=== PATIENT | male | born 1990 | race Caucasian/White ===

== ENCOUNTER → 2019-12-27 13:38 | Outpatient (BNVA) | payer SELFPAY | PROVIDERS: Visit Provider Nurse Practitioner Family | DX: J02.9 Acute pharyngitis, unspecified (principal); J20.8 Acute bronchitis due to other specified organisms; J06.9 Acute upper respiratory infection, unspecified; B96.89 Other specified bacterial agents as the cause of diseases classified elsewhere | CPT/HCPCS: 87081; 87880 ==

== ENCOUNTER 2020-01-03 16:24 | Emergency (ER) | payer SELFPAY ==
[2020-01-03 16:39] VITALS: BP 122/78; PULSE 63; RESP 16; TEMP 36.5; O2SAT 98; BMI 29.5
--- NOTE | 2020-01-03 16:59 | XR_ITS ---
WS: [id number] XR chest 2V* [id number] REASON FOR EXAM: cough FINDINGS: The heart is small mediastinal interfaces normal. The lung mccracken are well aerated. No active infiltrates, no pneumonia, pleural effusion, pulmonary ed yoshi, masseffect, or pneumothorax. The hilum and apices normal. XR/XR chest 2V* [id number] IMPRESSION: Negative chest for acute pathology.
--- NOTE | 2020-01-03 17:10 | ED_ITS ---
HPI - General Adult General: Chief complaint: General Medical Stated complaint: Cold symptoms Time Seen by Provider: 01/03/20 16:59 Source: patient Mode of arrival: ambulatory Limitations: no limitations History of Present Illness: HPI narrative: Patient is a 29-year-old male that states he had cough congestion along with sinus congestion for the last week and a half. States he has had slight muscle aches but denies any fevers. He denies any shortness of breath. He denies any productive cough. He denies any worsening or improving factors. Patient is currently in no distress here. Onset (ago): week(s) Severity: mild Relieving factors: none Exacerbating factors: none Associated symptoms: Deny chest pain, dyspnea, headache(s), nausea, rash or vomiting Review of Systems Const: Denies: fever, chills, body aches or change in appetite Eyes: Denies: blurry vision or eye discomfort ENMT: Reports: post nasal drip; Denies: throat pain or dental pain Card: Denies: chest pain Resp: Reports: non-productive cough; Denies: shortness of breath GI: Denies: abdominal pain, nausea, vomiting or diarrhea : Denies: painful urination Musc: Denies: neck pain or back pain Skin/Breast: Denies: rash Neuro: Denies: headache Psych: Denies: depression Sukhdeep/Lymph: Denies: easy bruising All/Imm: Denies: hives PFS ED PFSH: Social History (Updated 12/27/19 @ 13:38 by Ann Colon LPN) Smoking and tobacco status: current every day smoker Physical Exam Const: COMMON NORMALS: no apparent distress, oriented x3 and healthy appearing HENMT: COMMON NORMALS: normocephalic and head/scalp atraumatic HEAD & SCALP: normocephalic and atraumatic Eye: COMMON NORMALS: PERRL and EOMs intact bilaterally PUPIL: Yes PERRL Neck/C-Spine: COMMON NORMALS: full ROM and supple Chest: COMMONS NORMALS: inspection of chest normal and palpation of chest normal Resp: COMMON NORMALS: normal respiratory effort, no retractions, no use of accessory muscles and clear to auscultation bilaterally AUSCULTATION: clear to auscultation bilaterally Cardio: COMMON NORMALS: regular rate, regular rhythm and no murmurs RATE: regular rate RHYTHM: regular rhythm GI: COMMON NORMALS: normal to inspection, nondistended, normoactive bowel sounds, soft to palpation, non-tender and no masses PALPATION: Yes soft Extremity: COMMON NORMALS: normal to inspection and full ROM Neuro: COMMON NORMALS: oriented x3, moves all extremities and no focal motor deficits Psych: COMMON NORMALS: mental status grossly normal, thought process normal and cooperative THOUGHT PROCESS: normal thought process Skin: COMMON NORMALS: no rashes or lesions noted and no wounds GENERAL SKIN EXAM: no rashes or lesions noted Course Vital Signs: Vital signs: Vital Signs Temperature 97.7 F 01/03/20 16:39 Pulse Rate 63 01/03/20 16:39 Respiratory Rate 16 01/03/20 16:39 Blood Pressure 122/78 01/03/20 16:39 Pulse Oximetry 98 01/03/20 16:39 MDM - General Adult MDM Narrative: Medical decision making narrative: Patient presents here with cough congestion is likely a viral upper respiratory infection. He is afebrile and does not sick appearing. Patient given Decadron here and is stable for discharge. Discharge Plan Discharge Patient Disposition: Home, Self-Care Clinical Impression: Upper respiratory infection Condition: Stable Prescriptions: No Action azithromycin 250 mg tablet See Rx Instructions PO .COMPLEX Qty: 6 RF: 0 Discharge Orders: Discharge Order (Routine); Ordered 01/03/20 Ordered By: Pierce Jiang Discharge Diet: Advance as tolerated Discharge Activity: Resume usual activity Patient Instructions: Upper Respiratory Infection (ED) Coding Level of Care Code ED Landscape And Yardwork Laborer for Maria Antonia Vasquez
[2020-01-03] MEDS: dexamethasone 10 mg/mL INJ IM (17:25)
[2020-01-03 17:37] VITALS: BP 124/85; PULSE 64; RESP 16; TEMP 36.4; O2SAT 99
== END 2020-01-03 17:39 | disposition home or self-care (01) ==
LOC: ER 01-25 11:23
PROVIDERS: Emergency Provider Emergency Medicine
DX: J06.9 Acute upper respiratory infection, unspecified (principal); F17.200 Nicotine dependence, unspecified, uncomplicated
CPT/HCPCS: 12345; 71046; 96372; 99281; 99283; J1100

== ENCOUNTER 2020-01-11 15:46 | Emergency (ER) | payer SELFPAY ==
[2020-01-11 15:52] VITALS: BP 123/68; PULSE 80; RESP 16; TEMP 36.5; O2SAT 97; BMI 30.5
--- NOTE | 2020-01-11 16:16 | W.ED.URI ---
HPI - URI/Sore Throat General: Chief Complaint: Upper Respiratory Infection Stated Complaint: COUGH Time Seen by Provider: 01/11/20 15:59 Source: patient Mode of arrival: ambulatory Limitations: no limitations History of Present Illness: HPI Narrative: Patient is a 29-year-old male who presents to ED today requesting testing for COVID-19. Patient has had a cough for the past 2 weeks. He was initially seen here about a week ago and diagnosed with an upper respiratory infection and told to self quarantine for a week. Patient states he still has a cough and would like to know if he could return to work. He has not been running fevers. He has not had any difficulty breathing or shortness of breath. He does state the pain in his chest has improved from his last visit. MD elicited complaint: cough Onset (ago): week(s) Description of mucous: clear Able to tolerate fluids by mouth: Yes Exacerbating factors: nothing Relieving factors: nothing Associated symptoms: Deny abdominal pain, chills, chest pain, diarrhea, ear or mastoid pain, fever(s), headache(s), nasal congestion, nausea or vomiting Review of Systems General: Reports: 10 or more systems reviewed and unremarkable except in HPI and below Const: Denies: fever, chills, body aches, change in appetite, change in weight, fatigue or malaise Eyes: Denies: change in vision, blurry vision or photophobia ENMT: Denies: throat pain, enlarged tonsils, painful swallowing, oral sores/lesions, ear pain, nasal discharge or nasal congestion Card: Denies: chest pain, palpitations, irregular heart rhythm, edema, lightheadedness, syncope, pre-syncope, shortness of breath on exertion or shortness of breath when lying down Resp: Reports: productive cough and chest congestion; Denies: shortness of breath, pain on inspiration or coughing up blood GI: Denies: abdominal pain, nausea, vomiting or diarrhea Musc: Denies: neck pain or back pain Skin/Breast: Denies: rash Neuro: Denies: headache, numbness in extremities, weakness in extremities or changes in sensation [facility] ED PFSH: Social History (Updated 12/27/19 @ 13:38 by Ann Colon LPN) Smoking and tobacco status: current every day smoker Physical Exam Const: COMMON NORMALS: no apparent distress, average body habitus, oriented x3, no limitations, healthy appearing, alert and well nourished HENMT: COMMON NORMALS: normocephalic, head/scalp atraumatic, hearing grossly normal bilaterally, external ears normal, EAC's normal, TM's normal bilaterally, external nose normal, nasal mucous membranes and turbinates normal, moist oral mucous membranes and oropharynx normal HEAD & SCALP: normal to inspection, normocephalic and atraumatic FACE & SINUS: normal facial exam and sinuses nontender NOSE: external nose normal and nasal mucous membranes and turbinates normal EXTERNAL EAR: Yes external ears normal EXTERNAL AUDITORY CANAL: EAC's normal TYMPANIC MEMBRANE: TM's normal bilaterally MOUTH: oral and palatal mucosa normal THROAT: posterior oropharynx normal, tonsils normal and uvula midline Eye: COMMON NORMALS: PERRL, EOMs intact bilaterally and conjunctivae normal CONJUNCTIVA: Yes conjunctivae normal PUPIL: Yes PERRL Neck/C-Spine: COMMON NORMALS: no lymphadenopathy Resp: COMMON NORMALS: normal respiratory effort and clear to auscultation bilaterally AUSCULTATION: clear to auscultation bilaterally Cardio: COMMON NORMALS: regular rate and regular rhythm RATE: regular rate RHYTHM: regular rhythm Neuro: COMMON NORMALS: oriented x3 SENSORIUM/ORIENTATION: Yes alert Skin: COMMON NORMALS: no rashes or lesions noted GENERAL SKIN EXAM: no rashes or lesions noted Course Vital Signs: Vital signs: Vital Signs Temperature 97.7 F 01/11/20 15:52 Pulse Rate 80 01/11/20 15:52 Respiratory Rate 16 01/11/20 15:52 Blood Pressure 123/68 01/11/20 15:52 Pulse Oximetry 97 01/11/20 15:52 MDM - URI/Sore Throat MDM Narrative: Medical decision making narrative: Patient clinically appears well. His vital signs are completely stable. He does not meet CDC/state criteria for COVID-19 testing. 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 Discharge Plan Discharge Patient Disposition: Home, Self-Care Clinical Impression: Upper respiratory infection Qualifiers: URI type: unspecified viral URI Qualified Code(s): J06.9 - Acute upper respiratory infection, unspecified Condition: Stable Prescriptions: New albuterol sulfate 90 mcg/actuation HFA aerosol inhaler 2 inh INHALATION Q4H PRN (Reason: shortness of breath) Qty: 6.7 RF: 0 promethazine-DM 6.25-15 mg/5 mL syrup 5 ml PO Q6H PRN (Reason: cough) Qty: 473 RF: 0 No Action azithromycin 250 mg tablet See Rx Instructions PO .COMPLEX Qty: 6 RF: 0 Discharge Orders: Discharge Order (Routine); Ordered 01/11/20 Ordered By: Caitlyn Nichole Discharge Diet: Usual diet Discharge Activity: Increase activity as tolerated Activity Restrictions/Additional Instructions: BASED ON SYMPTOMS YOU NEED TO SELF QUARANTINE FOR ANOTHER WEEK. Stand Alone Forms: Work/School Release Coding Level of Care Code ED Job Coach/Job Developer for Maria Antonia Vasquez
[2020-01-11 17:17] VITALS: BP 146/71; PULSE 77; RESP 16; O2SAT 98
== END 2020-01-11 17:22 | disposition home or self-care (01) ==
PROVIDERS: Emergency Provider Physician Assistant
DX: J06.9 Acute upper respiratory infection, unspecified (principal); F17.200 Nicotine dependence, unspecified, uncomplicated
CPT/HCPCS: 12345; 99281; 99282

== ENCOUNTER 2020-01-22 12:47 | Emergency (ER) | payer SELFPAY ==
[2020-01-22 12:48] VITALS: BP 123/85; PULSE 91; RESP 18; TEMP 36.3; O2SAT 96
--- NOTE | 2020-01-22 12:59 | ED_ITS ---
HPI - SOB/Dyspnea General: Chief Complaint: Shortness of Breath/Dyspnea Stated Complaint: cough Time Seen by Provider: 01/22/20 12:55 History of Present Illness: HPI Narrative: Pt states he has been sick for 4 weeks with cough every morning, states the cough is severe in the mornings and he coughs up large amounts of sputum, he denies fever, states he has a lot of post nasal drip ,thinks he has allergies, he is angry because he hasnt been tested for coronavirus and he george been seen 3 times, he has quarantined himself for 2 weeks. states symptoms are not any worse. Just wants to be tested. He was prescribed antibiotic and an inhaler but he never filled them, MD elicited complaint: shortness of breath and cough Onset (ago): month(s) (1) Context: allergen exposure (seasonal) Timing: constant Severity: moderate Exacerbating factors: other (worse every morning) Relieving factors: nothing Associated symptoms: Reports cough; Deny abdominal pain, chest pain, extremity pain, fever(s), myalgias, nausea, palpitations, syncope or vomiting Treatment prior to arrival: none Review of Systems General: Reports: 10 or more systems reviewed and unremarkable except in HPI and below Const: Denies: fever ENMT: Reports: throat pain, nasal congestion and post nasal drip; Denies: dry mouth, ear pain or ear discharge Card: Denies: chest pain, palpitations, irregular heart rhythm, edema or syncope Resp: Reports: shortness of breath (only in the mornings) GI: Denies: abdominal pain, nausea, vomiting or vomiting blood : Denies: flank pain or difficulty urinating Musc: Denies: extremity pain, joint pain or joint swelling Skin/Breast: Denies: rash Neuro: Denies: headache, numbness in extremities or weakness in extremities Psych: Reports: anxiety; Denies: depression or sleeping more All/Imm: Reports: itchy eyes and seasonal allergies; Denies: throat swelling or tongue swelling PFSH ED PFSH: Social History Smoking and tobacco status: current every day smoker Physical Exam Const: COMMON NORMALS: no apparent distress and oriented x3 GENERAL APPEARANCE: cooperative; not in distress HENMT: COMMON NORMALS: normocephalic and external nose normal HEAD & SCALP: normal to inspection and normocephalic NOSE: external nose normal and other (post nasal drip) MOUTH: oral and palatal mucosa normal and lip normal Neck/C-Spine: COMMON NORMALS: full ROM, no lymphadenopathy, supple and no meningeal signs GENERAL: Yes normal visual inspection and Yes trachea midline Chest: COMMONS NORMALS: inspection of chest normal Resp: COMMON NORMALS: normal respiratory effort and clear to auscultation bilaterally EFFORT & INSPECTION: Yes able to speak in complete sentences and No respiratory distress AUSCULTATION: clear to auscultation bilaterally, no rales, no rhonchi and no wheezes Cardio: COMMON NORMALS: regular rate, regular rhythm, S1 normal heart sound, S2 normal heart sound and no murmurs RATE: regular rate RHYTHM: regular rhythm HEART SOUNDS: S1 normal and S2 normal PERIPHERAL PULSES: radial pulses present and dorsalis pedis pulses present GI: COMMON NORMALS: normal to inspection, nondistended, normoactive bowel sounds, soft to palpation and non-tender INSPECTION: Yes normal to inspection AUSCULTATION: Yes normoactive bowel sounds PALPATION: Yes soft, No tender, No guarding and No rigid RECTAL EXAM: Yes deferred : COMMON NORMALS: Yes no CVA tenderness BLADDER/KIDNEY EXAM: Yes no CVA tenderness Back/Pelvis: COMMON NORMALS: no CVA tenderness Extremity: COMMON NORMALS: normal to inspection, full ROM, normal capillary refill, no calf tenderness and no pedal edema Neuro: COMMON NORMALS: oriented x3, CN's II-XII intact bilaterally, moves all extremities and no focal motor deficits MENINGEAL SIGNS: Yes no meningeal signs Skin: COMMON NORMALS: no rashes or lesions noted GENERAL SKIN EXAM: no rashes or lesions noted Course Vital Signs: Vital signs: Vital Signs Temperature 97.3 F L 01/22/20 12:48 Pulse Rate 78 01/22/20 14:20 Respiratory Rate 20 H 01/22/20 14:20 Blood Pressure 140/87 01/22/20 14:20 Pulse Oximetry 97 01/22/20 14:20 MDM - SOB/Dyspnea MDM Narrative: Medical decision making narrative: Pt has severe cough when he wakes up in the mornings and is sob, I will repeat his cxr and test him for covid-19. He is not in any distress. He has already quarantined himself for 2 weeks and states he is already back to work. Pt has unremarkable cxr, he had a prescription for zithromax and inhaler at the [facility] so we will call to see if they have it still, they do have it and he will go get it. I have encouraged him to start using cetirizine as well. he will f/u with pcp in 2 days and return if anything worsens Imaging Data^: CXR: Radiologist's impression: XRay Report Signed Patient: Vladimir Mcneil #: [id number] : 1990Acct#:[id number] Age/Sex: M Date: 01/22/20 Loc: ERRoom/Bed: Attending Dr: Ordering Provider/Ordering MD: Amy Canas DO Date of Service: 01/22/20 Procedure(s): XR chest 1V portable [id number] Accession Number(s): [id number] Report Number: [id number] WS: [id number] CHEST XRAY TECHNIQUE: Portable chest. CLINICAL INFORMATION: pneumonia COMPARISON: 01/03/20 FINDINGS: Heart: Normal cardiac silhouette. Lungs: Lungs are clear. No consolidation or pleural effusion. No acute pulmonary infiltrates. Bones: Normal visualized bony structures. XR/XR chest 1V portable [id number] IMPRESSION: Normal chest Dictated By:Danyel Jacobs MD Signed By:Danyel Jacobs MDSigned Date/Time:01/22/20 1331 DD/ 1329 Discharge Plan Discharge Patient Disposition: Home, Self-Care Clinical Impression: Seasonal allergies, Bronchitis Condition: Stable Prescriptions: No Action azithromycin 250 mg tablet See Rx Instructions PO .COMPLEX Qty: 6 RF: 0 Vitamin C Powder 1 ea PO PRN RF: 0 amoxicillin 500 mg Tablet 500 mg PO BID RF: 0 albuterol sulfate 90 mcg/actuation HFA aerosol inhaler 2 inh INHALATION Q4H PRN (Reason: shortness of breath) Qty: 6.7 RF: 0 promethazine-DM 6.25-15 mg/5 mL syrup 5 ml PO Q6H PRN (Reason: cough) Qty: 473 RF: 0 Discharge Diet: Regular Discharge Activity: Resume usual activity Patient Instructions: Acute Bronchitis (ED) Activity Restrictions/Additional Instructions: get cetirizine over the counter and use daily, get prescriptions that are already filled at the [facility]. drink plenty of fluids. Follow up with PCP that case management finds for you. Return if worse, any problem, any change. You have been given info to get your COVID results. You have already quarantined for 14 days. stay home for 14 more if you develop fever or test is positive Discharge Date/Time: 01/22/20 14:21 Coding Level of Care Code ED Certification Technician for Maria Antonia Fwd Exam Comprehensive
--- NOTE | 2020-01-22 13:14 | XR_ITS ---
WS: [id number] CHEST XRAY TECHNIQUE: Portable chest. CLINICAL INFORMATION: pneumonia COMPARISON: 01/03/20 FINDINGS: Heart: Normal cardiac silhouette. Lungs: Lungs are clear. No consolidation or pleural effusion. No acute pulmonary infiltrates. Bones: Normal visualized bony structures. XR/XR chest 1V portable [id number] IMPRESSION: Normal chest
--- NOTE | 2020-01-22 13:33 | PC.NURSE ---
COVID swab collected
[2020-01-22 14:20] VITALS: BP 140/87; PULSE 78; RESP 20; O2SAT 97
--- NOTE | 2020-01-23 14:26 | DCPLANNER ---
quality system manager had message to speak with patient about getting established with a primary care physician. quality system manager called patient at phone number [phone], unable to speak with patient at this time, and unable to leave a voicemail for patient due to phone number not accepting phone calls at this time.
[2020-01-26 08:34] LABS: Coronavirus Overall Results NOT DETECTED
== END 2020-01-22 14:21 | disposition home or self-care (01) ==
PROVIDERS: Emergency Provider Emergency Medicine
DX: J30.2 Other seasonal allergic rhinitis (principal); J40 Bronchitis, not specified as acute or chronic; F17.200 Nicotine dependence, unspecified, uncomplicated
CPT/HCPCS: 12345; 71045; 87635; 99282

== ENCOUNTER 2020-02-08 10:32 | Emergency (ER) | payer SELFPAY ==
[2020-02-08 10:49] VITALS: BP 120/81; PULSE 74; RESP 16; TEMP 36.6; O2SAT 96; BMI 29.8
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
[2020-02-08 11:33] VITALS: RESP 18
[2020-02-08 11:38] VITALS: RESP 16; O2SAT 98
== END 2020-02-08 11:39 | disposition home or self-care (01) ==
LOC: ER 11:15
PROVIDERS: Emergency Provider Physician Assistant
DX: J06.9 Acute upper respiratory infection, unspecified (principal); F17.210 Nicotine dependence, cigarettes, uncomplicated
CPT/HCPCS: 12345; 99281

== ENCOUNTER 2020-02-24 13:44 | Emergency (ER) | payer SELFPAY ==
[2020-02-24 13:55] VITALS: BP 124/78; PULSE 73; RESP 18; TEMP 36.7; O2SAT 100; BMI 29.8
--- NOTE | 2020-02-24 13:57 | ED_ITS ---
HPI - Back Pain/Injury General: Chief Complaint: Back Pain/Injury Stated Complaint: BACK PAIN Time Seen by Provider: 02/24/20 13:46 History of Present Illness: HPI Narrative: Patient is a 29-year-old male who comes to the ED with acute on chronic lower back pain. Pain started yesterday. Patient was kayaking and then had to lift and carry his kayak and after that he started getting lower back pain that progressed throughout the rest that evening. Patient says he was having trouble getting up and moving last night. Pain is located all in the lower back on both right and left sides. Patient denies any trauma or injury provoke pain. Denies any numbness tingling or pain radiating down extremities. Denies any bladder or bowel incontinence and pelvic anesthesia. Associated symptoms: Deny abdominal pain, chills, dysuria, fatigue, fever(s), hematuria, nausea or vomiting Review of Systems Const: Denies: fever, chills or fatigue Eyes: Denies: change in vision or eye discomfort ENMT: Denies: throat pain, painful swallowing, nasal discharge or nasal congestion Card: Denies: chest pain, palpitations, edema, swelling of feet/ankles, shortness of breath on exertion or shortness of breath when lying down Resp: Denies: shortness of breath, productive cough or non-productive cough GI: Denies: abdominal pain, nausea, vomiting, diarrhea, constipation or blood in stool : Denies: flank pain, difficulty urinating, painful urination or blood in urine Musc: Reports: back pain; Denies: neck pain or extremity swelling Skin/Breast: Denies: rash or new lesion Neuro: Denies: headache, numbness in extremities or weakness in extremities PFS ED PFSH: Social History Smoking and tobacco status: current every day smoker Physical Exam Const: COMMON NORMALS: oriented x3, healthy appearing and alert GENERAL APPEARANCE: cooperative; not comfortable (uncofortable due to lower back pain.) HENMT: COMMON NORMALS: normocephalic HEAD & SCALP: normocephalic MOUTH: oral and palatal mucosa normal THROAT: posterior oropharynx normal and uvula midline Eye: COMMON NORMALS: PERRL PUPIL: Yes PERRL Neck/C-Spine: COMMON NORMALS: supple GENERAL: Yes normal visual inspection Resp: COMMON NORMALS: normal respiratory effort, no retractions, no use of accessory muscles and clear to auscultation bilaterally AUSCULTATION: clear to auscultation bilaterally Cardio: COMMON NORMALS: regular rate, regular rhythm, S1 normal heart sound, S2 normal heart sound, no gallops, no clicks, no murmurs and peripheral pulses 2+ throughout RATE: regular rate RHYTHM: regular rhythm HEART SOUNDS: S1 normal and S2 normal PERIPHERAL PULSES: pulses 2+ throughout GI: COMMON NORMALS: normal to inspection, nondistended, normoactive bowel sounds, soft to palpation, non-tender and no masses PALPATION: Yes soft : COMMON NORMALS: Yes no CVA tenderness BLADDER/KIDNEY EXAM: Yes no CVA tenderness Back/Pelvis: COMMON NORMALS: no CVA tenderness LUMBAR SPINE/LOWER BACK: No lumbar spinal tenderness and Yes paraspinal muscle tenderness Extremity: COMMON NORMALS: normal to inspection Neuro: COMMON NORMALS: oriented x3 and moves all extremities SENSORIUM/ORIENTATION: Yes alert Skin: COMMON NORMALS: no rashes or lesions noted GENERAL SKIN EXAM: no rashes or lesions noted and dry skin Course Vital Signs: Vital signs: Vital Signs Temperature 98.1 F 02/24/20 13:55 Pulse Rate 70 02/24/20 14:56 Respiratory Rate 20 H 02/24/20 14:56 Blood Pressure 124/78 02/24/20 13:55 Pulse Oximetry 100 02/24/20 14:56 MDM - Back Pain/Injury MDM Narrative: Medical decision making narrative: Patient is a 29-year-old male who comes to the ED with lower back pain. No pain, numbness or tingling radiating down either extremity. Denies loss of sensation in the pelvic area, bladder and bowel incontinence. Patient thinks he potentially pulled/strained lower back while kayaking and lifting kayak yesterday. Physical exam showed some lumbar paraspinal muscle tenderness. Patient was given a shot of Toradol and Norflex while here in the ED. I told patient to stretch lower back daily and to use heat or ice on lower back to help with symptoms. I sent patient home with a prescription for muscle relaxer and told him to use it at night. I also told patient to take OTC ibuprofen 600 mg 3 times a day to help with pain inflammation. Follow-up with PCP in 7 days for reevaluation. Patient understood and agreed with plan. Discharge Plan Discharge Patient Disposition: Home, Self-Care Clinical Impression: Strain of lumbar region Qualifiers: Encounter type: initial encounter Qualified Code(s): S39.012A - Strain of muscle, fascia and tendon of lower back, initial encounter Condition: Stable Prescriptions: New Robaxin-750 750 mg tablet 750 mg PO Q8H Qty: 20 RF: 0 No Action azithromycin 250 mg tablet See Rx Instructions PO .COMPLEX Qty: 6 RF: 0 Vitamin C Powder 1 ea PO PRN RF: 0 amoxicillin 500 mg Tablet 500 mg PO BID RF: 0 albuterol sulfate 90 mcg/actuation HFA aerosol inhaler 2 inh INHALATION Q4H PRN (Reason: shortness of breath) Qty: 6.7 RF: 0 promethazine-DM 6.25-15 mg/5 mL syrup 5 ml PO Q6H PRN (Reason: cough) Qty: 473 RF: 0 Discharge Orders: Discharge Order (Routine); Ordered 02/24/20 Ordered By: Jabier Dunbar Discharge Diet: Regular Discharge Activity: Increase activity as tolerated Patient Instructions: Low Back Strain (ED), Core Strengthening Exercises (GEN) Activity Restrictions/Additional Instructions: Follow-up with your PCP in 7 to 10 days for reevaluation. Take prescribed muscle relaxer at night before bed to help with pain and comfort while sleeping. Muscle relaxer might cause drowsiness so use with caution during the day. Take [id number] ibuprofen 600 mg 3 times a day to help with pain and inflammation. Apply ice and/or heat on lower back to help with pain and symptoms. To daily lower back stretches and core strengthening exercises to help with back pain. Discharge Date/Time: 02/24/20 14:56 Coding Level of Care Code ED Profile Grinder Technician for Maria Antonia Fwd Exam Comprehensive
[2020-02-24] MEDS: ketorolac 30 mg/mL INJ IM (14:44)
[2020-02-24] MEDS: orphenadrine 30 mg/mL Inj 2 mL 60 MG IM (14:45)
[2020-02-24 14:56] VITALS: PULSE 70; RESP 20; O2SAT 100
== END 2020-02-24 14:56 | disposition home or self-care (01) ==
PROVIDERS: Emergency Provider Physician Assistant
DX: S39.012A Strain of muscle, fascia and tendon of lower back, initial encounter (principal); X50.0XXA Overexertion from strenuous movement or load, initial encounter; F17.210 Nicotine dependence, cigarettes, uncomplicated
CPT/HCPCS: 12345; 96372; 99281; 99283; J1885; J2360

== ENCOUNTER 2020-11-27 12:07 | Emergency (ER) | payer SELFPAY ==
[2020-11-27 12:12] VITALS: BP 137/102; PULSE 108; RESP 20; TEMP 36.8; O2SAT 94; BMI 29.8
[2020-11-27 12:14] VITALS: BP 122/88; PULSE 99; RESP 20; O2SAT 96
--- NOTE | 2020-11-27 12:21 | XR_ITS ---
WS: [id number] Portable AP upright chest, 11/27/2020 Clinical Data: chest pain Comparison: Portable chest, 01/22/2020. Findings: No nodules, masses or effusions are seen. The heart is normal. The pulmonary vascularity is not increased. No pneumonia or pneumothorax is seen. XR/XR chest 1V portable [id number] Impression: Negative chest.
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
[2020-11-27 12:47] VITALS: O2SAT 97
[2020-11-27 13:04] VITALS: BP 124/83; PULSE 98; RESP 18; O2SAT 97
--- NOTE | 2020-11-28 10:51 | DCPLANNER ---
Addendum entered by Dulce Wheatley 11/28/20 12:49: Patient called child support case officer back, stated that he does not have insurance at this time. janitorial account manager will mail patient the financial reporting consultant application for primary care. Patient will fill out and turn in, if patients wants help in getting established with a primary care physician then he will call child support case officer. Original Note: janitorial account manager had message to speak with patient about getting a primary care physician. janitorial account manager called phone number [phone], unable to speak with patient at this time, a voicemail was left for patient to return child support case officer phone call.
[2020-11-28 16:04] LABS: Coronavirus Test Green County Not Detected
--- NOTE | 2020-11-29 08:43 | PC.NURSE ---
Pt called and notified of negative COVID result.
== END 2020-11-27 13:11 | disposition home or self-care (01) ==
PROVIDERS: Emergency Provider Physician Assistant
DX: Z20.828 Contact with and (suspected) exposure to other viral communicable diseases (principal); J06.9 Acute upper respiratory infection, unspecified; F17.200 Nicotine dependence, unspecified, uncomplicated
CPT/HCPCS: 71045; 87635; 99281

== ENCOUNTER 2021-01-18 20:15 | Emergency (ER) | payer SELFPAY ==
[2021-01-18 20:25] VITALS: BP 136/93; PULSE 86; RESP 18; TEMP 37.1; O2SAT 99; BMI 29.1
--- NOTE | 2021-01-18 23:19 | XRR_ITS ---
PROCEDURE INFORMATION: Exam: XR Left Ribs with PA Chest Exam date and time: 01/18/2021 11:20 PM Age: 30 years old Clinical indication: Injury or trauma; Chest wall and rib area, left side; Blunt trauma; Patient HX: Recent fall from approximate 8 foot height. C/O left chest wall and rib pain. ; Additional info: Pleuritic left side cp TECHNIQUE: Imaging protocol: XR Left ribs with PA chest. Views: 3 views COMPARISON: CR XR chest 1V portable [id number] 11/27/2020 12:29 PM FINDINGS: Lungs: Unremarkable. No consolidation. Pleural spaces: Unremarkable. No pleural effusion. No pneumothorax. Heart/Mediastinum: Unremarkable. No cardiomegaly. Bones/joints: Unremarkable. XR/XR ribs LT mn 3V w CXR1V [id number] IMPRESSION: No acute findings.
--- NOTE | 2021-01-18 23:23 | W.ED.CHESTPA ---
HPI - Chest Pain General: Chief Complaint: Chest Pain Stated Complaint: SHARP PAIN IN L SIDE CHEST Time Seen by Provider: 01/18/21 23:19 History of Present Illness: HPI narrative: Patient is a 30-year-old male comes to the ED with left-sided chest pain. Patient says symptoms started approximately 2 weeks ago after he had a fall. Patient describes that he was on shed putting some shingles on the roof and he slipped and fell off the shed. He says the shot was approximately 8 feet tall. Said ever since he had a fall he has had some left sided rib pain that is pleuritic in nature. Says it hurts to take a deep breath or when he coughs. He rates pain a 7 out of 10. Denies any shortness of breath or hemoptysis. Denies any head trauma, headache or loss of consciousness after fall. Associated symptoms: Deny abdominal pain, dyspnea, fever(s), nausea, palpitations or vomiting Review of Systems Const: Denies: fever(s), chills or fatigue Eyes: Denies: change in vision or eye discomfort ENMT: Denies: throat pain, odynophagia, nasal discharge or nasal congestion Card: Denies: chest pain, palpitations, edema, swelling of feet/ankles, dyspnea on exertion or orthopnea Resp: Reports: pain on inspiration (left rib pain); Denies: dyspnea, productive cough or non-productive cough GI: Denies: abdominal pain, nausea, vomiting, diarrhea, constipation or hematochezia : Denies: flank pain, difficulty urinating, dysuria or hematuria Musc: Denies: neck pain, back pain or extremity swelling Skin/Breast: Denies: rash or new lesions Neuro: Denies: headache(s), numbness in extremities or weakness in extremities [facility] ED PFSH: Social History Smoking and tobacco status: current every day smoker Alcohol intake: never Current gender identity: Male Physical Exam Const: COMMON NORMALS: no acute distress, patient oriented x3, healthy appearing and alert GENERAL APPEARANCE: cooperative and comfortable HENMT: COMMON NORMALS: normocephalic HEAD & SCALP: normocephalic MOUTH: Normal oral and palatal mucosa present THROAT: posterior oropharynx normal and uvula midline Neck/C-Spine: COMMON NORMALS: supple GENERAL: Yes normal visual inspection Chest: CHEST: Yes tenderness rib left mid-clavicular line involving the 5th rib, involving the 6th rib and involving the 7th rib Resp: COMMON NORMALS: normal respiratory effort, No retractions, No use of accessory muscles and clear to auscultation bilaterally AUSCULTATION: clear to auscultation bilaterally Cardio: COMMON NORMALS: regular rate, regular rhythm, S1 normal heart sound present, S2 normal heart sound present, No gallops present (Cardio), No clicks present (Cardio), No murmurs present (Cardio) and Peripheral pulses 2+ throughout RATE: regular rate RHYTHM: regular rhythm HEART SOUNDS: S1 normal heart sound present and S2 normal heart sound present PERIPHERAL PULSES: Peripheral pulses 2+ throughout GI: COMMON NORMALS: Normal to inspection, nondistended, normoactive bowel sounds present, Soft to palpation, non-tender and no masses PALPATION: Yes Soft to palpation : COMMON NORMALS: Yes no CVA tenderness BLADDER/KIDNEY EXAM: Yes no CVA tenderness Back/Pelvis: COMMON NORMALS: no CVA tenderness Extremity: COMMON NORMALS: normal to inspection Neuro: COMMON NORMALS: patient oriented x3 and moves all extremities SENSORIUM/ORIENTATION: Yes alert Skin: GENERAL SKIN EXAM: dry skin Course Vital Signs: Vital signs: Vital Signs Temperature 98.7 F 01/18/21 20:25 Pulse Rate 72 01/18/21 23:29 Respiratory Rate 18 01/18/21 23:57 Blood Pressure 131/87 01/18/21 23:57 Pulse Oximetry 98 01/18/21 23:57 MDM - Chest Pain MDM Narrative: Medical decision making narrative: Patient is a 30-year-old male comes to the ED with left pleuritic rib pain after falling off haider roof 2 weeks ago. Patient says that the room was approximately 8 feet tall and he denies any head trauma or loss of consciousness. Ever since fall he has had some left rib pain. Exam shows patient in no acute distress or pain but has some fifth through seventh left rib tenderness upon palpation. Left rib x-ray showed no acute fractures or findings. Patient diagnosed with musculoskeletal chest pain and discharged home. He was given a dose of Toradol while here in the ED. He was told to rest, ice and take [id number] Tylenol or ibuprofen for pain. Return to ED precautions given. Patient understood agree with plan. Imaging Data^: CXR: Attestation: I personally reviewed and interpreted this imaging study as follows: Radiologist's impression: [address] [address] XRay Report Signed Patient: Vladimir Mcneil #: [id number] : 1990Acct#:[id number] Age/Sex: 30 / MADM Date: 01/18/21 Loc: ERRoom/Bed: Attending Dr: Ordering Provider/Ordering MD: Jabier Dunbar Date of Service: 01/18/21 Procedure(s): XR ribs LT mn 3V w CXR1V [id number] Accession Number(s): [id number] Report Number: [id number] PROCEDURE INFORMATION: Exam: XR Left Ribs with PA Chest Exam date and time: 01/18/2021 11:20 PM Age: 30 years old Clinical indication: Injury or trauma; Chest wall and rib area, left side; Blunt trauma; Patient HX: Recent fall from approximate 8 foot height. C/O left chest wall and rib pain. ; Additional info: Pleuritic left side cp TECHNIQUE: Imaging protocol: XR Left ribs with PA chest. Views: 3 views COMPARISON: CR XR chest 1V portable [id number] 11/27/2020 12:29 PM FINDINGS: Lungs: Unremarkable. No consolidation. Pleural spaces: Unremarkable. No pleural effusion. No pneumothorax. Heart/Mediastinum: Unremarkable. No cardiomegaly. Bones/joints: Unremarkable. XR/XR ribs LT mn 3V w CXR1V [id number] IMPRESSION: No acute findings. Dictated By:Shwetha Garcia MD Signed By:Shwetha Garcia MDSigned Date/Time:01/18/212355 DD/ 54 Discharge Plan Discharge Patient Disposition: Home Clinical Impression: Musculoskeletal chest pain Condition: Stable Prescriptions: No Action albuterol sulfate 90 mcg/actuation aerosol powdr breath activated 2 inh INHALATION Q4H PRN (Reason: shortness of breath or wheezing) Qty: 1 RF: 0 Discharge Orders: Discharge ED (Routine); Ordered 01/18/21 Ordered By: Jabier Dunbar Discharge Diet: Regular Discharge Activity: Increase activity as tolerated Activity Restrictions/Additional Instructions: Follow-up with medical provider as directed in 7 to 10 days for reevaluation. Take [id number]-oye-[id number] ibuprofen or Tylenol for pain. Apply cold pack on sore left chest area to help with symptoms. Return to the ER or your medical provider if condition worsens. Please read and understand discharge instructions. If any questions, please ask. Coding Level of Care Code ED Ict Support Technicians for Maria Antonia Fwd Exam Comprehensive
[2021-01-18 23:29] VITALS: BP 131/87; PULSE 72; RESP 18; O2SAT 100
[2021-01-18] MEDS: ketorolac 60 mg/2 mL INJ IM (23:52)
[2021-01-18 23:57] VITALS: BP 131/87; RESP 18; O2SAT 98
== END 2021-01-18 23:58 | disposition home or self-care (01) ==
PROVIDERS: Emergency Provider Physician Assistant
DX: R07.89 Other chest pain (principal); F17.210 Nicotine dependence, cigarettes, uncomplicated
CPT/HCPCS: 71101; 96372; 99283; J1885

== ENCOUNTER 2021-05-26 18:05 | Emergency (ER) | payer SELFPAY ==
[2021-05-26 18:12] VITALS: BP 106/79; PULSE 121; RESP 19; TEMP 36.9; O2SAT 97; BMI 29.8
--- NOTE | 2021-05-26 18:33 | W.ED.BACK ---
HPI - Back Pain/Injury General: Chief Complaint: Back Pain/Injury Stated Complaint: Lower Back Sharp Pain Time Seen by Provider: 05/26/21 18:23 History of Present Illness: HPI Narrative: Patient is a 30-year-old male comes to the ED with back pain. Back pain started about 9 days ago. 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 He did not have a lot of pain at the time but the next day he was having some pain. He also states that that day he was lifting a lot of heavy materials as well and he thinks he could have strained his back. Pain is located on both sides of lower back and certain movements cause pain. He says he has some pain that radiates down both right and left thighs. Denies any bladder or bowel incontinence, pelvic anesthesia or weakness to lower extremities. Associated symptoms: Deny abdominal pain, chills, dysuria, fatigue, fever(s), hematuria, nausea or vomiting Review of Systems Const: Denies: fever(s), chills or fatigue Eyes: Denies: change in vision or eye discomfort ENMT: Denies: throat pain, odynophagia, nasal discharge or nasal congestion Card: Denies: chest pain, palpitations, edema, swelling of feet/ankles, dyspnea on exertion or orthopnea Resp: Denies: dyspnea, productive cough or non-productive cough GI: Denies: abdominal pain, nausea, vomiting, diarrhea, constipation or hematochezia : Denies: flank pain, difficulty urinating, dysuria or hematuria Musc: Reports: back pain; Denies: neck pain or extremity swelling Skin/Breast: Denies: rash or new lesions Neuro: Denies: headache(s), numbness in extremities or weakness in extremities PFSH ED PFSH: Social History Smoking and tobacco status: current every day smoker cigarettes Packs smoked per day: 0.5 Years cigarettes smoked: 17 Quit status (tobacco): has tried quititng Number of times tried to quit tobacco: 13 Second hand smoke exposure: Yes Alcohol intake: never Current gender identity: Male Physical Exam Const: COMMON NORMALS: patient oriented x3 HENMT: COMMON NORMALS: normocephalic HEAD & SCALP: normocephalic MOUTH: Normal oral and palatal mucosa present THROAT: posterior oropharynx normal and uvula midline Neck/C-Spine: COMMON NORMALS: supple GENERAL: Yes normal visual inspection Resp: COMMON NORMALS: normal respiratory effort, No retractions, No use of accessory muscles and clear to auscultation bilaterally AUSCULTATION: clear to auscultation bilaterally Cardio: COMMON NORMALS: regular rate, regular rhythm, S1 normal heart sound present, S2 normal heart sound present, No gallops present (Cardio), No clicks present (Cardio), No murmurs present (Cardio) and Peripheral pulses 2+ throughout RATE: regular rate RHYTHM: regular rhythm HEART SOUNDS: S1 normal heart sound present and S2 normal heart sound present PERIPHERAL PULSES: Peripheral pulses 2+ throughout GI: COMMON NORMALS: Normal to inspection, nondistended, normoactive bowel sounds present, Soft to palpation, non-tender and no masses PALPATION: Yes Soft to palpation : COMMON NORMALS: Yes no CVA tenderness BLADDER/KIDNEY EXAM: Yes no CVA tenderness Back/Pelvis: COMMON NORMALS: no CVA tenderness LUMBAR SPINE/LOWER BACK: Yes paraspinal muscle tenderness Lumbar paraspinal muscle tenderness: bilateral Bilateral lumbar paraspinal muscle tenderness: L3, L4 and L5 Extremity: COMMON NORMALS: normal to inspection Neuro: COMMON NORMALS: patient oriented x3 and moves all extremities Skin: GENERAL SKIN EXAM: dry skin Course Vital Signs: Vital signs: Vital Signs Temperature 98.4 F 05/26/21 18:40 Pulse Rate 71 05/26/21 20:17 Respiratory Rate 16 05/26/21 20:17 Blood Pressure 106/79 05/26/21 18:40 Pulse Oximetry 99 05/26/21 20:17 MDM - Back Pain/Injury Imaging Data^: Xray Ortho: Attestation: I personally reviewed and interpreted this imaging study as follows: Radiologist's impression: [address] [address] XRay Report Signed Patient: Vladimir Mcneil Unit #: [id number] : 1990 Age/Sex: 30 / M ADM Date: 05/26/21 Loc: ER Room/Bed: Attending Dr: Ordering Provider/Ordering MD: Jabier Dunbar Date of Service: 05/26/21 Procedure(s): XR lumbar spine 2-3V* [id number] Accession Number(s): [id number] Report Number: [id number] PROCEDURE INFORMATION: Exam: XR Lumbosacral Spine Exam date and time: 05/26/2021 6:51 PM Age: 30 years old Clinical indication: Low back pain; Additional info: Back pain, had a fall from ladder about 9 days ago TECHNIQUE: Imaging protocol: XR of the lumbosacral spine. Views: 2 or 3 views. COMPARISON: CT abdomen pelvis w con* [id number] 03/23/2016 7:11 PM FINDINGS: Bones/joints: Calcifications seen in the region of the left adrenal gland. Soft tissues: Unremarkable. XR/XR lumbar spine 2-3V* [id number] IMPRESSION: Negative for fracture or dislocation. Dictated By: Cesar Goss MD Signed By: Cesar Goss MD Signed Date/Time: 05/26/211958 DD/ 57 Discharge Plan Discharge Patient Disposition: Home Clinical Impression: Strain of lumbar region Qualifiers: Encounter type: initial encounter Qualified Code(s): S39.012A - Strain of muscle, fascia and tendon of lower back, initial encounter Condition: Stable Prescriptions: New Celebrex 100 mg capsule 100 mg PO BID Qty: 30 RF: 0 cyclobenzaprine 10 mg tablet 10 mg PO BID PRN (Reason: muscle spasm) Qty: 20 RF: 0 Medrol (Ellis) 4 mg tablets,dose pack See Rx Instructions .ROUTE .COMPLEX Qty: 21 RF: 0 No Action albuterol sulfate 90 mcg/actuation aerosol powdr breath activated 2 inh INHALATION Q4H PRN (Reason: shortness of breath or wheezing) Qty: 1 RF: 0 Discharge Orders: Discharge ED (Routine); Ordered 05/26/21 Ordered By: Jabier Dunbar Discharge Diet: Regular Discharge Activity: Increase activity as tolerated Patient Instructions: Low Back Strain (ED) Activity Restrictions/Additional Instructions: Follow-up with medical provider as directed in 7-10 days. Take medications as prescribed. Apply cold pack or heat on lower back and stretch lower back daily. Return to the ER or your medical provider if condition worsens. Please read and understand discharge instructions. Thank you for choosing [facility] for your healthcare needs today. Please realize this is an emergency room and that we are providing you with a medical screening exam and this may not be complete and all inclusive of all the testing and or work up that you may need to determine your ailment or severity of your illness. It is very important that you follow up as instructed or that you return to the Emergency Department should you have concerns or if your condition changes or worsens in any way. Coding Level of Care Code ED Power Plant Installer for Maria Antonia Fwrenetta Exam Comprehensive
[2021-05-26 18:40] VITALS: BP 106/79; PULSE 121; RESP 15; TEMP 36.9; O2SAT 97
--- NOTE | 2021-05-26 18:51 | XRR_ITS ---
PROCEDURE INFORMATION: Exam: XR Lumbosacral Spine Exam date and time: 05/26/2021 6:51 PM Age: 30 years old Clinical indication: Low back pain; Additional info: Back pain, had a fall from ladder about 9 days ago TECHNIQUE: Imaging protocol: XR of the lumbosacral spine. Views: 2 or 3 views. COMPARISON: CT abdomen pelvis w con* [id number] 03/23/2016 7:11 PM FINDINGS: Bones/joints: Calcifications seen in the region of the left adrenal gland. Soft tissues: Unremarkable. XR/XR lumbar spine 2-3V* [id number] IMPRESSION: Negative for fracture or dislocation.
[2021-05-26] MEDS: dexamethasone 10 mg/mL INJ IM (19:14)
[2021-05-26] MEDS: orphenadrine 30 mg/mL Inj 2 mL 60 MG IM (19:15)
[2021-05-26] MEDS: ketorolac 60 mg/2 mL INJ IM (19:15)
[2021-05-26 20:17] VITALS: PULSE 71; RESP 16; O2SAT 99
== END 2021-05-26 20:17 | disposition home or self-care (01) ==
PROVIDERS: Emergency Provider Physician Assistant
DX: S39.012A Strain of muscle, fascia and tendon of lower back, initial encounter (principal); F17.210 Nicotine dependence, cigarettes, uncomplicated; W11.XXXA Fall on and from ladder, initial encounter
CPT/HCPCS: 72100; 96372; 99283; J1100; J1885; J2360

== ENCOUNTER → 2021-06-18 13:50 | Outpatient (BNVA) | payer OTHER, SELFPAY | PROVIDERS: Visit Provider Nurse Practitioner | DX: Z20.822 Contact with and (suspected) exposure to COVID-19 (principal); Z20.828 Contact with and (suspected) exposure to other viral communicable diseases | CPT/HCPCS: 87635 ==

== ENCOUNTER 2021-07-24 20:17 | Emergency (ER) | payer SELFPAY ==
[2021-07-24 20:35] VITALS: BP 126/90; PULSE 83; RESP 16; TEMP 36.8; O2SAT 100
--- NOTE | 2021-07-24 21:17 | W.ED.EAR ---
HPI - Ear Problem General: Chief complaint: Ear Stated complaint: Left ear pain Time Seen by Provider: 07/24/21 21:09 History of Present Illness: HPI Narrative: Patient states he had ear pain 2 weeks ago after his hit him in the left ear while they were wrestling and was all by accident. Ear bother him for 2 weeks, then he went swimming at the [place] today and now he has decreased hearing in left ear and slight pain. MD Complaint: ear pain and decreased hearing Location: left ear Duration: constant Severity: mild Relieving factors: nothing Exacerbating factors: nothing Context: trauma Associated symptoms: Reports no associated symptoms and ear or mastoid pain (Left ear, and 2 weeks ago trauma, swam in a pool today.); Denies fever(s) or headache(s) Review of Systems Const: Denies: fever(s), chills or body aches Eyes: Denies: change in vision or blurry vision ENMT: Reports: ear or mastoid pain (Left ear, and 2 weeks ago trauma, swam in a pool today.); Denies: throat pain or nasal congestion Card: Denies: chest pain or dyspnea on exertion Resp: Denies: dyspnea, productive cough or non-productive cough GI: Denies: abdominal pain, nausea or vomiting : Denies: difficulty urinating Musc: Denies: extremity pain Skin/Breast: Denies: rash Neuro: Denies: headache(s) Psych: Denies: anxiety or depression Sukhdeep/Lymph: Denies: easy bruising PFSH ED PFSH: Social History Smoking and tobacco status: current every day smoker cigarettes Packs smoked per day: 0.5 Years cigarettes smoked: 17 Quit status (tobacco): has tried quititng Number of times tried to quit tobacco: 13 Second hand smoke exposure: Yes Alcohol intake: never Current gender identity: Male Physical Exam Const: COMMON NORMALS: no acute distress GENERAL APPEARANCE: cooperative HENMT: TYMPANIC MEMBRANE: TM normal on the right and TM abnormal TM laterality: left Details: perforation (2 holes in the eardrum) Details: without discharge MOUTH: Normal oral and palatal mucosa present Lymph: LYMPHATIC: no lymphadenopathy noted Psych: COMMON NORMALS: mental status grossly normal Course Vital Signs: Vital signs: Vital Signs Temperature 98.2 F 07/24/21 20:35 Pulse Rate 83 07/24/21 20:35 Respiratory Rate 16 07/24/21 20:35 Blood Pressure 126/90 07/24/21 20:35 Pulse Oximetry 100 07/24/21 20:35 Discharge Plan Discharge Patient Disposition: Home Clinical Impression: Tympanic membrane perforation Qualifiers: Laterality: left Qualified Code(s): H72.92 - Unspecified perforation of tympanic membrane, left ear Condition: Stable Prescriptions: New Cipro 500 mg tablet 500 mg PO BID Qty: 14 RF: 0 No Action amoxicillin-pot clavulanate [Augmentin] 875-125 mg tablet 1 tab PO BID 10 Days Qty: 20 RF: 0 Discharge Orders: Discharge ED (Routine); Ordered 07/24/21 Ordered By: Tutu Orlando Discharge Diet: Usual diet Discharge Activity: Resume usual activity Patient Instructions: Ruptured Eardrum (ED) Activity Restrictions/Additional Instructions: Do not go swimming until follow-up by ear nose throat doctor. Take Tylenol ibuprofen for any discomfort. Take medicine as directed. Hospital will contact you with appointment for ear nose throat provider. Coding Level of Care Code ED Electrical Maintenance Man for Maria Antonia Vasquez
--- NOTE | 2021-07-25 11:10 | DCPLANNER ---
manager human capital had message to schedule a follow up appointment for patient with ENT. manager human capital emailed patients information to Shavonne Villarreal and Kimmie at [facility] General Surgery/ENT. Patients information will be printed and reviewed. Clinic will call patient with appointment information.
--- NOTE | 2021-08-07 15:18 | DCPLANNER ---
Patient had a follow up appointment scheduled for 08.07.21 with ENT - patient did attend appointment.
== END 2021-07-24 21:31 | disposition home or self-care (01) ==
PROVIDERS: Emergency Provider Nurse Practitioner Family
DX: H72.92 Unspecified perforation of tympanic membrane, left ear (principal); F17.210 Nicotine dependence, cigarettes, uncomplicated
CPT/HCPCS: 99281

== ENCOUNTER 2021-11-10 06:37 | Emergency (ER) | payer SELFPAY ==
[2021-11-10 06:47] VITALS: BP 121/84; PULSE 114; RESP 18; TEMP 36.6; O2SAT 96; BMI 31.8
--- NOTE | 2021-11-10 06:57 | ED_ITS ---
HPI - General Adult General: Chief complaint: General Medical Stated complaint: throat swollen, hard to breath Time Seen by Provider: 11/10/21 06:55 History of Present Illness: HPI narrative: 31-year-old male presents emergency room complaining of swelling in his throat and throat pain and dysphagia. States it began yesterday has some swelling in his throat no fever sweats or chills. He is having some dysphagia with that as well. Does not recall any new medications or foods that seem to trigger it. Onset (ago): hour(s) Location: mouth (Throat) Radiation: non-radiation Severity: mild Quality: aching Pain Consistency: constant Relieving factors: none Exacerbating factors: none Associated symptoms: Reports short of breath; Deny chest pain, confusion, cough, diaphoresis, decreased appetite, dyspnea, fevers/chills, headache(s), malaise, nausea, rash, palpitations, seizures, syncope, vomiting or weakness Treatments prior to arrival: none Review of Systems Const: Denies: malaise or diaphoresis ENMT: Denies: throat pain, ear or mastoid pain, nasal discharge or nasal congestion Card: Denies: chest pain, palpitations or syncope Resp: Denies: dyspnea GI: Denies: nausea or vomiting : Denies: flank pain, dysuria, urinary frequency or urinary urgency Skin/Breast: Denies: rash Neuro: Denies: headache(s) or confusion PFSH ED PFSH: Social History Smoking and tobacco status: current every day smoker cigarettes Packs smoked per day: 0.5 Years cigarettes smoked: 17 Quit status (tobacco): has tried quititng Number of times tried to quit tobacc o: 13 Second hand smoke exposure: Yes Alcohol intake: never Current gender identity: Male Physical Exam Const: COMMON NORMALS: no acute distress GENERAL APPEARANCE: cooperative and comfortable ORIENTATION/CONSCIOUSNESS: Yes awake, Yes oriented to person, Yes oriented to place and Yes oriented to time HENMT: COMMON NORMALS: normocephalic, atraumatic, hearing grossly normal [place] aterally, external ears normal, EAC's normal, TM's normal bilaterally, Normal nasal mucous membranes and turbinates present and moist oral mucous membranes HEAD & SCALP: normocephalic and atraumatic NOSE: Normal nasal mucous membranes and turbinates present EXTERNAL EAR: Yes external ears normal EXTERNAL AUDITORY CANAL: EAC's normal TYMPANIC MEMBRANE: TM's normal bilaterally OTHER: No erythema the posterior pharyngeal wall no swelling pharyngeal tonsils there is mild swelling of the uvula. Neck is supple no submandibular or cervical lymphadenopathy is noted no swelling or stridor noted. Eye: COMMON NORMALS: Equal, round and reactive pupils present, EOMs intact bilaterally, conjunctivae normal and no scleral icterus CONJUNCTIVA: Yes conjunctivae normal PUPIL: Yes Equal, round and reactive pupils present Neck/C-Spine: COMMON NORMALS: full ROM, no lymphadenopathy, supple and no JVD Lymph: LYMPHATIC: no lymphadenopathy noted and no lymphedema noted Resp: COMMON NORMALS: normal respiratory effort, No retractions, No use of accessory muscles and clear to auscultation bilaterally AUSCULTATION: clear to auscultation bilaterally Cardio: COMMON NORMALS: no JVD, regular rate, regular rhythm and No murmurs present (Cardio) RATE: regular rate RHYTHM: regular rhythm GI: COMMON NORMALS: Soft to palpation and No hepatosplenomegaly present AUSCULTATION: Yes normoactive bowel sounds PALPATION: Yes Soft to palpation, No Tenderness to palpation present (GI), No Guarding due to palpation present (GI) and Yes No hepatosplenomegaly present Extremity: COMMON NORMALS: normal to inspection, capillary refill normal, no clubbing, cyanosis or edema, no calf tenderness and no pedal edema Neuro: SENSORIUM/ORIENTATION: Yes oriented to person, Yes oriented to place and Yes oriented to time Skin: COMMON NORMALS: no rashes or lesions noted GENERAL SKIN EXAM: no rashes or lesions noted Course Vital Signs: Vital signs: Vital Signs Temperature 97.9 F 11/10/21 06:47 Pulse Rate 99 11/10/21 07:41 Respiratory Rate 25 H 11/10/21 07:41 Blood Pressure 121/87 11/10/21 07:41 Pulse Oximetry 99 11/10/21 07:41 MDM - General Adult MDM Narrative: Medical decision making narrative: CT discussed with Dr. Lockhart, there is no airway compromise.. Labs reviewed. Patient is mildly hyponatremic. He is asymptomatic of this at this point. We will give him some IV fluids. Dr. Muir reviewed the CT and discussed the case with me he is on- call today. He recommends discharging the patient home on 10 days of Levaquin and clindamycin he asked that we give him a dose of Kenalog now and discharge him home on a steroid Dosepak. Reviewed this with the patient he is agreeable we will have case management make follow-up arrangements. Return if he has any further problems. Lab Data: Labs: Lab Results 11/10/21 11/10/21 11/10/21 07:34 07:34 07:48 WBC 17.4 10^3/uL H 10 ^3/uL (4.0-10.0) RBC 4.77 10^6/uL 10^6 /uL (4.1-5.3) Hgb 14.5 g/dL g/dL (11.7-16.6) Hct 42.2 % % (42.0-52.0) MCV 88.5 fl fl (80-94) MCH 30.4 pg pg (28.0-34.0) MCHC 34.4 g/dL g/dL (30.0-36.0) RDW 12.5 % % (12.1-15.1) Plt Count 198 10^3/cmm 10^3 /cmm (130-400) MPV 11.1 fL H fL (7.4-10.4) Neut % (Auto) 79.3 % % Lymph % (Auto) 13.2 % % Cross % (Auto) 6.3 % % Eos % (Auto) 0.5 % % Baso % (Auto) 0.4 % % Neut # (Auto) 13.80 10^3/uL H 1 0^3/uL (1.8-7.7) Lymph # (Auto) 2.3 10^3/uL 10^3/ uL (0.8-4.8) Cross # (Auto) 1.1 10^3/uL H 10^ 3/uL (0.2-0.9) Eos # (Auto) 0.1 10^3/uL 10^3/ uL (0.0-0.8) Baso # (Auto) 0.1 10^3/uL 10^3/ uL (0.0-0.1) Nucleated RBC % (a uto) 0 % % Nucleated RBCs # 0.0 /100WBC /100W BC Sodium 121 mmol/L L mmol /L (136-145) Potassium 3.7 mmol/L mmol/L (3.5-5.1) Chloride 88 mmol/L L mmol/ L (98-107) Carbon Dioxide 21 mmol/L L mmol/ L (22-29) Anion Gap 15.7 (5-19) BUN 9 mg/dL mg/dL (6-20) Creatinine 0.8 mg/dL mg/dL (0.7-1.2) GFR Calculation 111.3 mL/min mL/m in (90-130) Glucose 90 mg/dL mg/dL (65-115) Calculated Osmolal ity 250 mOsm/kg L mOs m/kg (285-295) Calcium 7.5 mg/dL L mg/dL (8.5-10.5) Group A Strep Rapi d Negative (Negative) Discharge Plan Discharge Patient Disposition: Home Clinical Impression: Pharyngitis, Hyponatremia Condition: Stable Prescriptions: New levofloxacin 750 mg tablet 750 mg PO DAILY 10 Days Qty: 10 RF: 0 clindamycin HCl 300 mg capsule 300 mg PO QID 10 Days Qty: 40 RF: 0 Medrol (Ellis) 4 mg tablets,dose pack See Rx Instructions .ROUTE .COMPLEX Qty: 21 RF: 0 Discharge Orders: Discharge ED (Routine); Ordered 11/10/21 Ordered By: Maurizio Richmond Patient Instructions: Opioid Safety Coding Level of Care Code ED Echocardiograph Tech for Maria Antonia Fwd Exam Comprehensive
--- NOTE | 2021-11-10 07:04 | CT_ITS ---
WS: [id number] CT NECK WITH CONTRAST HISTORY: neck/throat swelling TECHNIQUE: Contiguous 5 mm axial images are performed through the neck with intravenous contrast. Sag ittal and coronal reformats are also submitted. All CT scans at [facility] use at least one o f these dose optimization techniques: automated exposure control; mA and/or kV adjustment per patient size (includes targeted exams where dose is matched to clinical indication); or iterative reconstruc tion. CONTRAST: CONTRAST: Omnipaque 300; 95 mL IV. DLP: 515.15 mGy.cm COMPARISON: 03/10/2018 The epiglottis is thin without enhancement. There is moderate thickening and edema within the aryepig lottic folds. This is symmetric and bilateral. There is no abscess or abnormal enhancement other than mild hyperemia. There is slight narrowing of the central supraglottic airway. These changes are new since 03/10/2018. There is also mild thickening of the uvula with mild hyperemia and enhancement within the nasopharynx and oropharynx. No abscess identified. There are numerous enlarged cervical chain lymph nodes. Lymph nodes measure up to 14 mm in diameter. Majority of the lymph nodes are at level 2A and B. There are additional smaller lymph nodes along the cervical chains. Parapharyngeal fat is normal. No retropharyngeal abscess. Thyroid gland and salivary glands are normally enhancing with no masses. Mild straightening of the normal cervical lordosis. Visualized portions of the skull base demonstrate no abnormalities. Orbits and globes are within norm al limits. No soft tissue masses. Visualized paranasal sinuses and mastoid air cells are normal. Lung apices are clear. There is a cystic mass conforming to the high RIGHT paratracheal soft tissue m easuring 19 x 16 mm. This was present in 2018 and differential includes small cyst or pericardial rec ess. CT/CT neck w con* [id number] IMPRESSION: 1. Mildly enlarged edematous uvula, pharyngeal mucosa of the oropharynx and na sopharynx. No abscess. 2. Moderate edema aryepiglottic folds without abscess consistent with acute serrato praglottitis. 3. Bilateral cervical chain lymphadenopathy, reactive. Notified Maurizio Richmond DO at 11/10/2021 7:52 AM.
[2021-11-10] MEDS: iohexol 300 mg/mL 100 mL Btl IV (07:27)
[2021-11-10 07:41] VITALS: BP 121/87; PULSE 99; RESP 25; O2SAT 99
[2021-11-10 07:42] LABS: Basophils # 0.1 10^3/uL (0.0-0.1); Basophils % 0.4 %; Eosinophils # 0.1 10^3/uL (0.0-0.8); Eosinophils % 0.5 %; Hematocrit 42.2 % (42.0-52.0); Hemoglobin 14.5 g/dL (11.7-16.6); Lymphocytes # 2.3 10^3/uL (0.8-4.8); Lymphocytes % 13.2 %; Mean Corpuscular HGB Conc 34.4 g/dL (30.0-36.0); Mean Corpuscular Hemoglobin 30.4 pg (28.0-34.0); Mean Corpuscular Volume 88.5 fl (80-94); Mean Platelet Volume 11.1 fL (7.4-10.4); Monocytes # 1.1 10^3/uL (0.2-0.9); Monocytes % 6.3 %; Neutrophils % 79.3 %; Nucleated Red Blood Cells % 0 %; Platelet Count 198 10^3/cmm (130-400); Red Blood Count 4.77 10^6/uL (4.1-5.3); Red Cell Distribution Width 12.5 % (12.1-15.1); White Blood Count 17.4 10^3/uL (4.0-10.0)
[2021-11-10] MEDS: diphenhydrAMINE 50 mg/mL SDV 1mL IVP (07:43)
[2021-11-10 08:02] LABS: Rapid Strep A Test Negative (Negative)
[2021-11-10 08:02] LABS: Anion Gap 15.7 (5-19); Blood Urea Nitrogen 9 mg/dL (6-20); Calcium 7.5 mg/dL (8.5-10.5); Carbon Dioxide 21 mmol/L (22-29); Chloride 88 mmol/L (98-107); Glomerular Filtration Rate 111.3 mL/min (90-130); Glucose 90 mg/dL (65-115); Osmolality Calculated 250 mOsm/kg (285-295); Potassium 3.7 mmol/L (3.5-5.1); Sodium 121 mmol/L (136-145)
[2021-11-10] MEDS: sodium chloride 0.9% 1,000 ML 999 ML IV (08:50)
[2021-11-10] MEDS: vancomycin 1,000 MG in sodium chloride 0.9% 250 ML 250 MG IV (09:16)
[2021-11-10] MEDS: triamcinolone 40 mg/mL SDV IM (09:17)
[2021-11-10 10:27] VITALS: BP 96/67; PULSE 91; RESP 16; O2SAT 96
[2021-11-10 10:33] VITALS: BP 123/66; PULSE 93; RESP 16; O2SAT 95
--- NOTE | 2021-11-11 13:04 | DCPLANNER ---
Addendum entered by Dulce Wheatley 11/14/21 14:05: Patient does not have insurance, wanted to see Dr. Diana at [facility] ENT - patient was seen in 11.11.21. Original Note: manager case had message to schedule a follow up appointment for patient with Dr. Walker, ENT. manager case called clinic, got fax number, informed clinic that patients information would be faxed to the clinic for review. Clinic will call patient with appointment information.
== END 2021-11-10 10:35 | disposition home or self-care (01) ==
PROVIDERS: Emergency Provider Family Medicine
DX: J02.9 Acute pharyngitis, unspecified (principal); E87.1 Hypo-osmolality and hyponatremia; F17.210 Nicotine dependence, cigarettes, uncomplicated
CPT/HCPCS: 70491; 80048; 85025; 87040; 87081; 87880; 96365; 96372; 96375; 99284; J1200; J2930; J3301; J3370; J7030; J7050; Q9967

== ENCOUNTER 2022-01-11 05:40 | Emergency (ER) | payer BC, MEDICAID, SELFPAY ==
[2022-01-11 06:10] VITALS: BP 128/86; PULSE 89; RESP 18; TEMP 36.6; O2SAT 97; BMI 31.1
--- NOTE | 2022-01-11 06:18 | ED_ITS ---
HPI - Eye Problem General: Chief complaint: Eye Problems Stated complaint: RT eye pain/Swollen Time Seen by Provider: 01/11/22 06:13 Source: patient Mode of arrival: ambulatory Limitations: no limitations History of Present Illness: 31-year-old male states been having some right eye pain and some redness and discharge from that eye states been going on for 2 to 3 days denies any change in vision rates his pain a 1 out of 10 denies any worsening improving factors. Denies any headache. Associated symptoms: Denies fever(s), headache(s), nausea, neck pain or vomiting Review of Systems Const: Denies: fever(s), chills, body aches or change in appetite Eyes: Reports: eye discomfort, eye discharge and eye redness ENMT: Denies: throat pain or dental pain Card: Denies: chest pain Resp: Denies: dyspnea GI: Denies: abdominal pain, nausea, vomiting or diarrhea : Denies: dysuria Musc: Denies: neck pain or back pain Skin/Breast: Denies: rash Neuro: Denies: headache(s) Psych: Denies: depression Sukhdeep/Lymph: Denies: easy bruising All/Imm: Denies: urticaria PFSH ED PFSH: Social History Smoking and tobacco status: current every day smoker (.5 pack a day ) cigarettes Packs smoked per day: 0.5 Years cigarettes smoked: 17 Quit status (tobacco): has tried quititng Number of times tried to quit [employer]: 13 Second hand smoke exposure: Yes Alcohol intake: never Current gender identity: Male Physical Exam Const: COMMON NORMALS: no acute distress, patient oriented x3 and healthy appearing HENMT: COMMON NORMALS: normocephalic and atraumatic HEAD & SCALP: normocephalic and atraumatic Eye: COMMON NORMALS: Equal, round and reactive pupils present and EOMs intact bilaterally PUPIL: Yes Equal, round and reactive pupils present OTHER: Slight erythema to the right eye fluorescein stain under Reddy lamp is normal Neck/C-Spine: COMMON NORMALS: full ROM and supple Chest: COMMONS NORMALS: normal inspection of the chest and normal palpation of entire chest wall Resp: COMMON NORMALS: normal respiratory effort, No retractions, No use of accessory muscles and clear to auscultation bilaterally AUSCULTATION: clear to auscultation bilaterally Cardio: COMMON NORMALS: regular rate, regular rhythm and No murmurs present (Cardio) RATE: regular rate RHYTHM: regular rhythm GI: COMMON NORMALS: Normal to inspection, nondistended, normoactive bowel sounds present, Soft to palpation, non-tender and no masses PALPATION: Yes Soft to palpation Extremity: COMMON NORMALS: normal to inspection and full ROM Neuro: COMMON NORMALS: patient oriented x3, moves all extremities and no focal motor deficits Psych: COMMON NORMALS: mental status grossly normal, Normal thought process present and cooperative THOUGHT PROCESS: Normal thought process present Skin: COMMON NORMALS: no rashes or lesions noted and no wounds GENERAL SKIN EXAM: no rashes or lesions noted Course Vital Signs: Vital signs: Vital Signs Temperature 97.8 F 01/11/22 06:10 Pulse Rate 89 01/11/22 06:10 Respiratory Rate 18 01/11/22 06:10 Blood Pressure 128/86 01/11/22 06:10 Pulse Oximetry 97 01/11/22 06:10 MDM - Eye Problem Medical Decision Making Patient presents here with eye pain and slight conjunctivitis no signs of abrasion or ulcers we will place him on erythromycin ointment he is stable for discharge. Discharge Plan Discharge Patient Disposition: Home Clinical Impression: Conjunctivitis Qualifiers: Conjunctivitis type: acute Acute conjunctivitis type: bacterial Laterality: right Qualified Code(s): H10.31 - Unspecified acute conjunctivitis, right eye Condition: Stable Prescriptions: New erythromycin 5 mg/gram (0.5 %) ointment 1 applic ophthalmic (eye) BID 5 Days Qty: 50 0RF No Action omeprazole 20 mg capsule,delayed release(DR/EC) 20 mg PO DAILY Qty: 30 5RF Medrol (Ellis) 4 mg tablets,dose pack See Rx Instructions .ROUTE .COMPLEX Qty: 21 0RF Rx Instructions: orally per package directions Discharge Orders: Discharge ED (Routine); Ordered 01/11/22 Ordered By: Pierce Jiang Discharge Diet: Advance as tolerated Discharge Activity: Resume usual activity Patient Instructions: Conjunctivitis (ED) Coding Level of Care Code ED Branch Chief for Maria Antonia Vasquez
== END 2022-01-11 06:38 | disposition home or self-care (01) ==
PROVIDERS: Emergency Provider Emergency Medicine
DX: H10.31 Unspecified acute conjunctivitis, right eye (principal); F17.210 Nicotine dependence, cigarettes, uncomplicated
CPT/HCPCS: 99281

== ENCOUNTER → 2022-02-18 15:01 | Outpatient (BNVA) | payer BC, MEDICAID, SELFPAY | PROVIDERS: Visit Provider Nurse Practitioner Family | DX: R05.9 Cough, unspecified (principal); J01.40 Acute pansinusitis, unspecified; J30.89 Other allergic rhinitis | CPT/HCPCS: 87400 ==

== ENCOUNTER → 2023-02-11 10:48 | Outpatient (BNVA) | payer BC, MEDICAID, SELFPAY | PROVIDERS: Visit Provider Nurse Practitioner Family | DX: J02.9 Acute pharyngitis, unspecified (principal) | CPT/HCPCS: 87070; 87880 ==

== ENCOUNTER 2023-04-02 23:54 | Inpatient (IN) | payer BC, MEDICAID, SELFPAY ==
[2023-04-02 23:55] VITALS: BP 127/90; PULSE 85; RESP 18; TEMP 36.6; O2SAT 98; BMI 23.0
[2023-04-03 00:37] LABS: Basophils # 0.1 10^3/uL (0.0-0.1); Basophils % 0.6 %; Eosinophils # 0.2 10^3/uL (0.0-0.8); Hematocrit 46.6 % (42.0-52.0); Hemoglobin 15.2 g/dL (11.7-16.6); Lymphocytes # 2.8 10^3/uL (0.8-4.8); Lymphocytes % 24.4 %; Mean Corpuscular HGB Conc 32.6 g/dL (30.0-36.0); Mean Corpuscular Hemoglobin 29.3 pg (28.0-34.0); Mean Platelet Volume 11.5 fL (7.4-10.4); Monocytes # 0.8 10^3/uL (0.2-0.9); Monocytes % 6.7 %; Neutrophils # 7.45 10^3/uL (1.8-7.7); Neutrophils % 66.1 %; Nucleated Red Blood Cells % 0 %; Platelet Count 281 10^3/cmm (130-400); Red Blood Count 5.18 10^6/uL (4.1-5.3); Red Cell Distribution Width 12.4 % (12.1-15.1); White Blood Count 11.3 10^3/uL (4.0-10.0)
[2023-04-03 00:50] LABS: Add Urine Microscopic? NO; Charge for UA Resulting for Rev
[2023-04-03 01:02] LABS: Bilirubin Urine Neg (Negative); Blood Urine Neg (Negative); Glucose Urine UA Norm (Normal); Ketones Urine 1+ (Negative); Leukocyte Esterase Urine Negative (Negative); Nitrate Urine Negative (Negative); Protein Urine Neg (Negative); Urine Appearance Clear (CLEAR); Urine Color Yellow (Yellow); Urobilinogen Urine Norm (Negative); pH Urine 6 (5-7)
[2023-04-03 01:07] LABS: Alanine Aminotransferase 18 U/L (0-41); Albumin Level 4.6 g/dL (3.5-5.2); Alkaline Phosphatase 91 U/L (40-130); Anion Gap 15.7 (5-19); Aspartate Amino Transferase 12 U/L (0-40); Blood Urea Nitrogen 6 mg/dL (6-20); Calcium 9.3 mg/dL (8.5-10.5); Carbon Dioxide 26 mmol/L (22-29); Chloride 102 mmol/L (98-107); Globulin 2.5 g/dL (1.3-4.6); Glomerular Filtration Rate 110.7 mL/min (90-130); Glucose 88 mg/dL (65-115); Osmolality Calculated 287 mOsm/kg (285-295); Potassium 3.7 mmol/L (3.5-5.1); Sodium 140 mmol/L (136-145); Total Bilirubin 0.3 mg/dL (0.15-1.2); Total Protein 7.1 g/dL (6.6-8.7)
[2023-04-03 01:10] LABS: Acetaminophen < 5.0 ug/mL (10-30); Alcohol Level < 10 mg/dL (0-10); Salicylate < 0.3 mg/dL (3-10)
[2023-04-03 01:27] LABS: Amphetamines Screen Urine Negative (Negative); Barbiturates Screen Urine Negative (Negative); Benzodiazepines Screen Urine Negative (Negative); Cocaine Screen Urine Negative (Negative); Opiate Screen Urine Negative (Negative); PCP Screen Urine Negative (Negative); THC Screen Urine Positive (Negative)
--- NOTE | 2023-04-03 03:02 | W.ED.PSYCHS ---
HPI - Psych General: Chief Complaint: Psychiatric Symptoms Stated Complaint: Stressed Source: patient History of Present Illness: 32-year-old male with a history of depression and PTSD. He presents after getting an argument with his roommate this evening. He had homicidal thoughts against roommate after being threatened. He first went to the police, and was asked to come here. He has been feeling hopeless. He is a chronic marijuana addict, and relapsed on this recently. He admits to not eating as well. MD complaint: feels depressed and other Onset (ago): hour(s) Duration: constant History of same: No Relieving factors: none Exacerbating factors: other Context: recent drug abuse and significant life stressor Associated psychiatric symptoms: depression and homicidal ideation Associated symptoms: Reports depression; Deny auditory hallucinations, visual hallucinations or suicidal ideation Treatments prior to arrival: none Review of Systems Const: Denies: fever(s), chills or body aches Eyes: Denies: change in vision Card: Denies: chest pain or palpitations Resp: Denies: dyspnea, productive cough, non-productive cough or wheezing GI: Reports: nausea and vomiting; Denies: abdominal pain, diarrhea or hematochezia Skin/Breast: Denies: rash Neuro: Denies: headache(s), weakness in extremities, dizziness or confusion Psych: Reports: depression; Denies: visual hallucinations, auditory hallucinations or suicidal ideation [facility] ED PFSH: Social History Smoking and tobacco status: current every day smoker cigarettes Packs smoked per day: 0.5 Years cigarettes smoked: 17 Quit status (tobacco): has tried quititng Number of times tried to quit tobacco: 13 Second hand smoke exposure: Yes Alcohol intake: never Substance/Drug Use: never Current gender identity: Male Physical Exam Const: COMMON NORMALS: no acute distress GENERAL APPEARANCE: cooperative; not ill appearing and not frail appearing HENMT: COMMON NORMALS: normocephalic, atraumatic and Normal external nose present HEAD & SCALP: normocephalic and atraumatic FACE & SINUS: normal facial exam and face symmetric NOSE: Normal external nose present Eye: COMMON NORMALS: Equal, round and reactive pupils present and EOMs intact bilaterally PUPIL: Yes Equal, round and reactive pupils present Neck/C-Spine: GENERAL: Yes trachea midline Chest: CHEST: Yes Symmetrical chest wall rise Resp: COMMON NORMALS: normal respiratory effort, No retractions, No use of accessory muscles and clear to auscultation bilaterally AUSCULTATION: clear to auscultation bilaterally Cardio: COMMON NORMALS: regular rate and regular rhythm RATE: regular rate RHYTHM: regular rhythm GI: COMMON NORMALS: Normal to inspection, nondistended, normoactive bowel sounds present Extremity: COMMON NORMALS: no pedal edema Neuro: ASIF COMA SCALE: document [facility] findings [place] coma scale eye opening: Spontaneous Asif coma scale verbal response: Orientated [place] coma scale motor response: Obey commands [place] coma scale total score: 15 SENSORY EXAM: Yes extremities (intact) Psych: COMMON NORMALS: speech normal SPEECH: Yes normal speech Skin: COMMON NORMALS: no rashes or lesions noted GENERAL SKIN EXAM: no rashes or lesions noted Course Vital Signs: Vital signs: Vital Signs Temperature 98 F 04/02/23 23:55 Pulse Rate 85 04/02/23 23:55 Respiratory Rate 18 04/02/23 23:55 Blood Pressure 127/90 04/02/23 23:55 Pulse Oximetry 98 04/02/23 23:55 Oxygen Delivery Me thod Room Air 04/02/23 23:55 MDM - Psych Medical Decision Making Depression with homicidal ideation. Patient does not feel safe going home. He has had increased depressive symptoms, and history of PTSD. Laboratory is essentially normal save marijuana ingestion and positivity on UDS. Medically, he is stable. He wishes to be evaluated by psychiatry. Spoke with Dr. Chacko, who agrees to admit. Lab Data 04/03/23 00:26 04/03/23 00:26 Laboratory Results WBC 11.3 10^3/uL (4.0-10.0) H 04/03/23 00:26 RBC 5.18 10^6/uL (4.1-5.3) 04/03/23 00:26 Hgb 15.2 g/dL (11.7-16.6) 04/03/23 00:26 Hct 46.6 % (42.0-52.0) 04/03/23 00:26 MCV 90.0 fl (80-94) 04/03/23 00:26 MCH 29.3 pg (28.0-34.0) 04/03/23 00:26 MCHC 32.6 g/dL (30.0-36.0) 04/03/23 00:26 RDW 12.4 % (12.1-15.1) 04/03/23 00:26 Plt Count 281 10^3/cmm (130-400) 04/03/23 00:26 MPV 11.5 fL (7.4-10.4) H 04/03/23 00:26 Neut % (Auto) 66.1 % 04/03/23 00: Lymph % (Auto) 24.4 % 04/03/23 00:26 [place] % (Auto) 6.7 % 04/03/23 00:26 Eos % (Auto) 2.0 % 04/03/23 00:26 Baso % (Auto) 0.6 % 04/03/23 00: Neut # (Auto) 7.45 10^3/uL (1.8-7.7) 04/03/23 00: Lymph # (Auto) 2.8 10^3/uL (0.8-4.8) 04/03/23 00:26 [place] # (Auto) 0.8 10^3/uL (0.2-0.9) 04/03/23 00:26 Eos # (Auto) 0.2 10^3/uL (0.0-0.8) 04/03/23 00:26 Baso # (Auto) 0.1 10^3/uL (0.0-0.1) 04/03/23 00:26 Nucleated RBC % (auto) 0 % 04/03/23 00: Nucleated RBCs # 0.0 /100WBC 04/03/23 00:26 Sodium 140 mmol/L (136-145) 04/03/23 00:26 Potassium 3.7 mmol/L (3.5-5.1) 04/03/23 00: Chloride 102 mmol/L (98-107) 04/03/23 00:26 Carbon Dioxide 26 mmol/L (22-29) 04/03/23 00:26 Anion Gap 15.7 (5-19) 04/03/23 00:26 BUN 6 mg/dL (6-20) 04/03/23 00:26 Creatinine 0.8 mg/dL (0.7-1.2) 04/03/23 00:26 GFR Calculation 110.7 mL/min (90-130) 04/03/23 00: Glucose 88 mg/dL (65-115) 04/03/23 00:26 Calculated Osmolality 287 mOsm/kg (285-295) 04/03/23 00: Calcium 9.3 mg/dL (8.5-10.5) 04/03/23 00:26 Total Bilirubin 0.3 mg/dL (0.15-1.2) 04/03/23: AST 12 U/L (0-40) 04/03/23: ALT 18 U/L (0-41) 04/03/23 00: Alkaline Phosphatase 91 U/L (40-130) 04/03/23 00: Total Protein 7.1 g/dL (6.6-8.7) 04/03/23: Albumin 4.6 g/dL (3.5-5.2) 04/03/23: Globulin 2.5 g/dL (1.3-4.6) 04/03/23 00: Urine Color Yellow (Yellow) 04/03/23 00: Urine Appearance Clear (CLEAR) 04/03/23 00: Urine pH 6 (5-7) 04/03/23 00:26 Ur Specific [place] 1.010 (1.005-1.030) 04/03/23 00: Urine Protein Neg (Negative) 04/03/23 00: Urine Glucose (UA) Norm (Normal) 04/03/23 00: Urine Ketones 1+ (Negative) H 04/03/23 00: Urine Blood Neg (Negative) 04/03/23 00: Urine Nitrate Negative (Negative) 04/03/23 00: Urine Bilirubin Neg (Negative) 04/03/23 00:26 Urine Urobilinogen Norm mg/dL (Negative) 04/03/23 00:26 Ur Leukocyte Esterase Negative (Negative) 04/03/23 00:26 Salicylates < 0.3 mg/dL (3-10) L 04/03/23 00:26 Urine Opiates Screen Negative ng/mL (Negative) 04/03/23 00: Acetaminophen < 5.0 ug/mL (10-30) L 04/03/23 00: Ur Barbiturates Screen Negative ng/mL (Negative) 06/17/23 00:26 Ur Phencyclidine Scrn Negative ng/mL (Negative) 04/03/23 00:26 Ur Amphetamines Screen Negative ng/mL (Negative) 04/03/23 00:26 U Benzodiazepines Scrn Negative ng/mL (Negative) 04/03/23 00:26 Urine Cocaine Screen Negative ng/mL (Negative) 04/03/23 00:26 U Marijuana (THC) Screen Positive ng/mL (Negative) H 04/03/23 00:26 Ethyl Alcohol < 10 mg/dL (0-10) 04/03/23 00:26 Discharge Plan Discharge Patient Disposition: Admitted As Inpatient Admit Provider: Jordin Chacko Clinical Impression: Depression, Cannabis use disorder, severe, in early remission, dependence, Homicidal ideation Condition: Stable Coding Level of Care Code ED Early Childhood Education Specialist for Maria Antonia Vasquez
[2023-04-03 04:02] VITALS: BP 129/88; PULSE 90; RESP 18; TEMP 36.4; O2SAT 97
[2023-04-03 06:00] VITALS: BP 122/89; PULSE 85; RESP 16; TEMP 36.7; O2SAT 96
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
[2023-04-03 14:00] VITALS: BP 138/84; PULSE 103; RESP 17; TEMP 36.6; O2SAT 97
[2023-04-03] MEDS: buPROPion SR (12 HR) 150 mg Tablet PO (15:35)
[2023-04-03] MEDS: hyDROXYzine 25 mg Capsule 50 MG PO (16:40)
--- NOTE | 2023-04-03 16:47 | PC.NURSE ---
Patient stated the wellbutrin the doctor started him on has made him feel high and violent. Patient given 50mg hydroxyzine PO.
[2023-04-03 20:04] VITALS: BP 118/78; PULSE 110; RESP 20; TEMP 36.9; O2SAT 98
[2023-04-04 05:47] VITALS: BP 115/84; PULSE 84; RESP 17; TEMP 36.4; O2SAT 99
--- NOTE | 2023-04-04 07:44 | PC.NURSE ---
REFUSED SCHEDULED WELLBUTRIN, STATED HE DIDN'T LIKE THE REACTION HE HAD TO IT THE OTHER DAY, AND SINCE HE IS VOLUNTARY HE CAN REFUSE IT.
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
[2023-04-04 14:00] VITALS: BP 117/87; PULSE 80; RESP 16; TEMP 37.1; O2SAT 98
[2023-04-04] MEDS: nicotine 2 mg Gum BUCCAL (14:05)
[2023-04-04] MEDS: buPROPion XL (24 HR) 150 mg Tablet PO (14:10)
--- NOTE | 2023-04-04 14:11 | PC.NURSE ---
GIVEN SCHEDULED DOSE OF WELLBUTRN AT THIS TIME PER DR. PINEDA REQUEST
[2023-04-04 20:58] VITALS: BP 110/71; PULSE 59; RESP 16; TEMP 36.8; O2SAT 97
[2023-04-05 06:00] VITALS: BP 107/71; PULSE 92; RESP 18; O2SAT 99
[2023-04-05] MEDS: buPROPion XL (24 HR) 150 mg Tablet PO (08:17)
[2023-04-05] MEDS: nicotine 2 mg Gum BUCCAL ×2 (09:43→18:30)
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
[2023-04-05 14:00] VITALS: BP 111/77; PULSE 92; RESP 16; O2SAT 97
--- NOTE | 2023-04-05 15:17 | PC.NURSE ---
VS machine was not detecting PT's oral or axillary temperature.
[2023-04-05 20:35] VITALS: BP 123/89; PULSE 94; RESP 18; TEMP 36.2; O2SAT 98
[2023-04-06 06:00] VITALS: BP 106/75; PULSE 78; RESP 16; TEMP 36.7; O2SAT 99
[2023-04-06] MEDS: buPROPion XL (24 HR) 150 mg Tablet PO (08:33)
[2023-04-06] MEDS: nicotine 2 mg Gum BUCCAL ×3 (10:46→21:43)
[2023-04-06 13:54] VITALS: BP 128/84; PULSE 90; RESP 18; TEMP 36.4; O2SAT 97
[2023-04-06 14:00] VITALS: BP 128/84; PULSE 90; RESP 18; TEMP 36.4; O2SAT 97
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
[2023-04-06 22:00] VITALS: BP 123/81; PULSE 90; RESP 16; TEMP 36.7; O2SAT 97
[2023-04-07 06:00] VITALS: BP 121/81; PULSE 81; RESP 17; O2SAT 99
[2023-04-07] MEDS: buPROPion XL (24 HR) 150 mg Tablet PO (08:06)
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
[2023-04-07 09:23] VITALS: BP 121/81; PULSE 81; RESP 17; O2SAT 99
[2023-04-07] MEDS: nicotine 2 mg Gum BUCCAL (09:51)
--- NOTE | 2023-04-07 11:44 | PC.NURSE ---
WRITTEN DISCHARGE INSTRUCTION DISCUSSED AND LEFT IN PATIENT POSESSION. PT PERSONAL BELONGING WENT THROUGH WITH PATIENT, ALL BELONGINGS ACCOUNTED FOR. PT LEFT VIA [facility].
== END 2023-04-07 11:48 | disposition home or self-care (01) | DRG 881 ==
LOC: ER 04-03 02:01 → NP 04-03 02:08
PROVIDERS: Admitting Provider Psychiatry & Neurology Psychiatry; Emergency Provider Emergency Medicine; PCP Family Medicine; Visit Provider Psychiatry & Neurology Psychiatry
DX: F32.A Depression, unspecified (principal); R45.851 Suicidal ideations; F43.10 Post-traumatic stress disorder, unspecified; R45.850 Homicidal ideations; F12.20 Cannabis dependence, uncomplicated; F15.21 Other stimulant dependence, in remission; F90.9 Attention-deficit hyperactivity disorder, unspecified type; F17.210 Nicotine dependence, cigarettes, uncomplicated
CPT/HCPCS: 80053; 80306; 80307; 81003; 85025; 97150; 97165; 99285

== ENCOUNTER → 2023-04-08 16:04 | Outpatient (BNVA) | payer BC, SELFPAY | PROVIDERS: PCP Family Medicine; Visit Provider Registered Nurse Neonatal Intensive Care | DX: S69.92XA Unspecified injury of left wrist, hand and finger(s), initial encounter (principal); X58.XXXA Exposure to other specified factors, initial encounter | CPT/HCPCS: 73110 ==

== ENCOUNTER → 2023-05-05 14:55 | Outpatient (BNVA) | payer BC, MEDICAID, SELFPAY | PROVIDERS: PCP Family Medicine; Referring Provider Registered Nurse Neonatal Intensive Care; Visit Provider Specialist | DX: R22.32 Localized swelling, mass and lump, left upper limb (principal) | CPT/HCPCS: 73110 ==

== ENCOUNTER 2023-05-28 12:02 | Emergency (ER) | payer BC, MEDICAID, SELFPAY ==
[2023-05-28 12:18] VITALS: BP 136/86; PULSE 70; RESP 14; TEMP 36.5; O2SAT 98; BMI 28.5
--- NOTE | 2023-05-28 13:38 | ED_ITS ---
HPI - Dental/Oral General: Chief complaint: Dental/Oral Stated complaint: dental pain Time Seen by Provider: 05/28/23 12:30 Source: patient Mode of arrival: ambulatory Limitations: no limitations History of Present Illness: 32-year-old male states that he has had right upper dental pain over the last 2 days. Denies any fever he denies any trismus he states pain sharp in nature rates it a 5 out of 10 denies any radiation of his pain. He has not seen a dentist. Associated symptoms: Denies fever(s) Review of Systems 2 Const: Denies: fever(s) or chills ENMT: Reports: mouth pain; Denies: throat pain or dental pain Card: Denies: chest pain Resp: Denies: dyspnea GI: Denies: abdominal pain, nausea, vomiting or diarrhea Skin/Breast: Denies: rash Neuro: Denies: headache(s) [facility] ED PFSH: Medical History Psychiatric care Social History Smoking and tobacco status: current every day smoker cigarettes Packs smoked per day: 0.5 Years cigarettes smoked: 17 Quit status (tobacco): has tried quititng Number of times tried to quit tobacco: 13 Second hand smoke exposure: Yes Alcohol intake: never Substance/Drug Use: never Current gender identity: Male Physical Exam Const: COMMON NORMALS: no acute distress and patient oriented x3 HENMT: COMMON NORMALS: normocephalic HEAD & SCALP: normocephalic OTHER: Poor dentition tenderness over right upper molar no abscess or trismus Neck/C-Spine: COMMON NORMALS: full ROM Chest: COMMONS NORMALS: normal inspection of the chest Resp: COMMON NORMALS: normal respiratory effort GI: INSPECTION: Yes normal to inspection Extremity: COMMON NORMALS: normal to inspection Neuro: COMMON NORMALS: patient oriented x3 Psych: COMMON NORMALS: mental status grossly normal Skin: COMMON NORMALS: no rashes or lesions noted GENERAL SKIN EXAM: no rashes or lesions noted Course Vital Signs: Vital signs: Vital Signs Temperature 97.7 F 05/28/23 12:18 Pulse Rate 70 05/28/23 12:18 Respiratory Rate 14 05/28/23 12:18 Blood Pressure 136/86 05/28/23 12:18 Pulse Oximetry 98 05/28/23 12:18 Oxygen Delivery Me thod Room Air 05/28/23 12:18 MDM - Dental/Oral Medical Decision Making Patient presents here with likely dental infection no trismus no abscess we will place him on antibiotics he needs to follow-up with a dentist. Discharge Plan Discharge Patient Disposition: Home Clinical Impression: Toothache Condition: Stable Prescriptions: New cephalexin 500 mg capsule 500 mg PO TID 7 Days Qty: 21 0RF naproxen [Naprosyn] 500 mg tablet 500 mg PO BID PRN (Reason: pain) Qty: 20 0RF No Action amoxicillin-pot clavulanate 875-125 mg tablet 1 tab PO BID 7 Days Qty: 14 0RF bupropion HCl 150 mg Tablet Extended Release 24 Hr 150 mg PO DAILY 30 Days Qty: 30 1RF Discharge Orders: Discharge ED (Routine); Ordered 05/28/23 Ordered By: Pierce Jiang Referrals: Basil Puentes MD [Primary Care Provider] - Discharge Diet: Advance as tolerated Discharge Activity: Resume usual activity Patient Instructions: Toothache (ED) Coding Level of Care Code ED Secondary English Teacher for Maria Antonia Vasquez
[2023-05-28] MEDS: HYDROcodone-acetaminophen 5-325 mg Tablet 1 TAB PO (13:44)
== END 2023-05-28 13:48 | disposition home or self-care (01) ==
PROVIDERS: Emergency Provider Emergency Medicine; PCP Family Medicine
DX: K08.89 Other specified disorders of teeth and supporting structures (principal); F17.210 Nicotine dependence, cigarettes, uncomplicated
CPT/HCPCS: 99283

== ENCOUNTER 2023-06-01 10:43 | Outpatient (CLI) | payer BC, MEDICAID, SELFPAY ==
--- NOTE | 2023-06-01 11:00 | MR_ITS ---
WS: [id number] EXAMINATION: MR wrist LT wo con* [id number] ORDER DATE: 06/01/2023 10:59 AM COMPARISON: None. HISTORY: WRIST MASS CONTRAST: None. TECHNIQUE: Axial T1, axial T2 fat sat, coronal T1, coronal proton density fat sat, coronal STIR, meghan nal 3D, and sagittal T1 performed. After contrast, axial T1 fat sat, coronal T1 fat sat, and sagittal T1 fat sat were performed. FINDINGS: In the area of concern, near the palpable marker, there is a 2.3 x 2.3 x 1.6 cm AP by transverse by c raniocaudal T2 hyperintense soft tissue mass. This appears well-circumscribed with a low signal capsu le. This extends along the undersurface of the distal ulna. Findings are nonspecific but this has a s olid appearance and differential considerations include traumatic neuroma considering history, nerve sheath tumor such as schwannoma or possibly fibroma.Soft tissue mass abuts the carpal tunnel and flex or carpi ulnaris. Gadolinium enhancement may provide additional information. No evidence of underlying bony erosion. Normal bone marrow signal in the distal ulna. TFCC appears in tact. Normal scaphoid and lunate. Normal radius scaphoid articulation. Normal carpal tunnel. IMPRESSION: Well-circumscribed soft tissue mass in the area of concern deep to the palpable marker described abov e. Differential considerations include traumatic neuroma, nerve sheath tumor specifically schwannoma, or possibly fibroma.
== END 2023-06-01 10:44 | disposition home or self-care (01) ==
LOC: RAD 10:44
PROVIDERS: PCP Family Medicine; Visit Provider Specialist
DX: M25.532 Pain in left wrist (principal); R22.32 Localized swelling, mass and lump, left upper limb
CPT/HCPCS: 73221

== ENCOUNTER 2023-07-22 09:22 | Outpatient (CLI) | payer BC, SELFPAY ==
--- NOTE | 2023-07-22 09:30 | MR_ITS ---
WS: [id number] MRI LEFT wrist, with and without contrast. COMPARISON: Noncontrast MRI wrist 06/01/2023. HISTORY: Additional evaluation soft tissue mass. Precontrast T1 sequences are performed through the wrist. Postcontrast in 3 planes. Intensely enhancing soft tissue mass along the medial aspect of the distal ulna. This is at the locat ion of the extensor carpi ulnaris tendon. Mass measures 2.2 cm transversely by 1.1 cm anterior managing principal ior and extends over a length of 2.5 cm. This enhancing mass abuts the volar surface of the ulna and extends to about the flexor digitorum profundus tendon in the carpal tunnel. A very small portion of the extensor carpi ulnaris tendon is noted in the peripheral enhancing soft tissue mass. No additional masses are identified. The normal marrow signal is present. IMPRESSION: 1. Intensely enhancing soft tissue mass along the region of the extensor carpi ulnaris tendon at the level of the distal ulna. Mass measures 2.2 x 1.1 x 2.5 cm. 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 Due to the enhancement features additional diagnoses to consider are perip heral nerve sheath tumor. This does not appear to be a ganglion.
[2023-07-22] MEDS: gadobenate dimeglumine 20 mL vial IV (10:02)
== END 2023-07-22 09:23 | disposition home or self-care (01) ==
PROVIDERS: PCP Family Medicine; Visit Provider Specialist
DX: R22.32 Localized swelling, mass and lump, left upper limb (principal)
CPT/HCPCS: 73223; A9577